=== PATIENT | female | born 1955 | race Caucasian/White ===

== ENCOUNTER → 2018-12-15 | Outpatient (CLI) | payer BC ==
--- NOTE | 2018-12-19 20:20 | HM ---
HOLTER MONITOR REPORT PROCEDURE PERFORMED: 24 hour Holter monitor DATE OF SERVICE: December 15, 2018. INDICATION: Palpitations. REFERRING: Dr. Milner. CLINICAL INFORMATION: The patient was monitored for 24 hours. The baseline rhythm appeared to be a sinus mechanism with a minimum heart rate of 69 beats per minute. Max heart rate 142 beats per minute, average heart rate of 95 beats per minutes. Ventricular ectopic events were presented in less than 1% of the total beats common. Supraventricular ectopic events were presented in less than 1% of the total beats count as well. The patient did have a few short episodes of SVT noted. No evidence of any sinus pause or sinus arrest seen. CONCLUSION: 1. Sinus rhythm as a baseline mechanism. 2. Rare ventricular ectopic events. 3. Rare supraventricular ectopic events. 4. The patient did have multiple short episode of SVT consistent with atrial tachycardia. 5. No evidence of sinus pauses or sinus arrest. 6. The patient reported no symptoms. MMODL / IJN: [id number] /
== END ==
LOC: RADECHMAIN 11:52
PROVIDERS: ATTEND Family Medicine
DX: R00.0 Tachycardia, unspecified (principal)
CPT/HCPCS: 93225; 93226

== ENCOUNTER → 2019-06-04 | Outpatient (CLI) | payer BC ==
--- NOTE | 2019-06-09 09:07 | MM ---
Reason for exam: screening (asymptomatic). Last mammogram was performed 4 years and 6 months ago. Physical Findings: A clinical breast exam by your physician is recommended on an annual basis and results should be correlated with mammographic findings. MG 3D Screening Mammo W/Cad Bilateral CC and MLO view(s) were taken. Prior study comparison: December 01, 2014, bilateral MG screening mammo w CAD. October 07, 2007, workup right diagnostic mammogram. The breast tissue is heterogeneously dense. This may lower the sensitivity of mammography. Focal asymmetry right medial CC. This finding is changed when compared with previous exams. ASSESSMENT: Incomplete: need additional imaging evaluation, BI-RAD 0 RECOMMENDATION: Special view mammogram of the right breast. If lesion persists on supplemental views, image directed ultrasound is recommended. [facility] will attempt to contact patient to return for supplemental views and ultrasound if indicated.
== END | disposition home or self-care (01) ==
LOC: RADMAMWWP 15:12
PROVIDERS: ATTEND Family Medicine
DX: Z12.31 Encounter for screening mammogram for malignant neoplasm of breast (principal)
CPT/HCPCS: 77063; 77067

== ENCOUNTER → 2019-06-23 | Outpatient (CLI) | payer BC ==
--- NOTE | 2019-06-24 08:22 | MM ---
Reason for exam: additional evaluation requested from abnormal screening. Last mammogram was performed 1 month ago. History: Patient is postmenopausal. Physical Findings: Nurse did not find any significant physical abnormalities on exam. MG 3D Work Up W/Cad RT Spot compression CC and LM view(s) were taken of the right breast. Prior study comparison: June 04, 2019, bilateral MG 3d screening mammo w/cad. December 01, 2014, bilateral MG screening mammo w CAD. The breast tissue is heterogeneously dense. This may lower the sensitivity of mammography. The previously seen abnormality resolves on additional views and appears as fibroglandular tissue compatible with summation on the right breast. Retrospectively this medial asymmetry is stable back to 2014. These results were verbally communicated with the patient and result sheet given to the patient on 06/23/19. ASSESSMENT: Benign, BI-RAD 2 RECOMMENDATION: Return to routine screening mammogram schedule for both breasts.
== END | disposition home or self-care (01) ==
LOC: RADMAMWWP 15:12
PROVIDERS: ATTEND Family Medicine
DX: R92.8 Other abnormal and inconclusive findings on diagnostic imaging of breast (principal)
CPT/HCPCS: 77061; 77065

== ENCOUNTER → 2020-10-05 | Outpatient (CLI) | payer BC ==
--- NOTE | 2020-10-06 11:01 | MM ---
Reason for exam: screening (asymptomatic). Last mammogram was performed 1 year and 3 months ago. History: Patient is postmenopausal. Physical Findings: A clinical breast exam by your physician is recommended on an annual basis and results should be correlated with mammographic findings. MG 3D Screening Mammo W/Cad Bilateral CC and MLO view(s) were taken. Prior study comparison: June 23, 2019, right breast MG 3d work up w/cad RT. June 04, 2019, bilateral MG 3d screening mammo w/cad. There are scattered fibroglandular densities. No significant changes when compared with prior studies. ASSESSMENT: Benign, BI-RAD 2 RECOMMENDATION: Routine screening mammogram of both breasts in 1 year.
== END | disposition home or self-care (01) ==
LOC: RADMAMWWP 15:09
PROVIDERS: ATTEND Family Medicine
DX: Z12.31 Encounter for screening mammogram for malignant neoplasm of breast (principal)
CPT/HCPCS: 77063; 77067

== ENCOUNTER 2021-04-18 08:09 | Day surgery (SDC) | payer BC ==
[2021-04-13 17:23] VITALS: BMI 39.0
[~2021-04-18 08:09] MED LIST: LACTATED RINGERS 1,000 ML IV SCH
[2021-04-18] MEDS ORDERED: LIDOCAINE 1% (10MG/ML) FOR IV START INTRADERMA ONE (08:40)
[2021-04-18 08:46] VITALS: RESP 16; TEMP 98.3
[2021-04-18] MEDS ORDERED: PROPOFOL 10 MG/ML 20 ML VIAL IV ONE (09:06)
--- NOTE | 2021-04-18 09:10 | P.GSHP ---
History of Present Illness H&P Date: 04/18/21 Chief Complaint: Colon cancer screening 65-year-old female here today for colonoscopy. Last colonoscopy 7 years ago. At study was normal. Has a family history of colon cancer in her uncle. No bowel complaints. Past Medical History Past Medical History: Asthma, Hypertension Additional Past Medical History / Comment(s): Asthma when smoked in past. History of Any Multi-Drug Resistant Organisms: None Reported Additional Past Surgical History / Comment(s): D&C. Colonoscopy Past Anesthesia/Blood Transfusion Reactions: No Reported Reaction Smoking Status: Former smoker - Past Family History Sister(s) Family Medical History: Cancer Additional Family Medical History / Comment(s): liver cancer; another sister had minor skin cancer Brother(s) Family Medical History: CVA/TIA Medications and Allergies Home Medications Medication Instructions Recorded Confirmed Type Valsartan/Hydrochlorothiazide 1 each PO DAILY 02/26/16 04/13/21 History [Valsartan-Hctz 320-25 mg Tab] amLODIPine BESYLATE [Norvasc] 5 mg PO DAILY 02/26/16 04/13/21 History Metoprolol Succinate (ER) [Toprol 25 mg PO DAILY 04/13/21 04/13/21 History Xl] Multivitamins, Thera [Multivitamin 1 tab PO DAILY 04/13/21 04/13/21 History (formulary)] Allergies Allergy/AdvReac Type Severity Reaction Status Date / Time lisinopril [From Zestril] AdvReac Cough Verified 04/18/21 08:30 Surgical - Exam Vital Signs Temp Pulse Resp BP Pulse Ox 98.3 F 95 16 135/77 96 04/18/21 08:40 04/18/21 08:40 04/18/21 08:40 04/18/21 08:40 04/18/21 08:40 Physical exam: General: Well-developed, well-nourished HEENT: Normocephalic, sclerae nonicteric Abdomen: Nontender, nondistended Extremities: No edema Neuro: Alert and oriented Assessment and Plan (1) Colon cancer screening Narrative/Plan: Will proceed with colonoscopy Current Visit: Yes Status: Acute Code(s): Z12.11 - ENCOUNTER FOR SCREENING FOR MALIGNANT NEOPLASM OF COLON SNOMED Code(s): 793440605
--- NOTE | 2021-04-18 09:33 | P.PCN ---
Date of Procedure: 04/18/21 Procedure(s) Performed: PREOPERATIVE DIAGNOSIS: Colon cancer screening POSTOPERATIVE DIAGNOSIS: Normal exam PROCEDURE: Colonoscopy ANESTHESIA: MAC SURGEON: Mike Armas M.D. SPECIMENS: None ENDOSCOPIC PROCEDURE: The patient was placed on the endoscopy table in the left decubitus position. The Olympus colonoscope was inserted into the anus and passed under direct visualization to the base of the cecum. The appendiceal orifice was visualized. From that point the scope was slowly withdrawn inspecti ng all surfaces carefully. There were no neoplastic inflammatory or polypoid lesions throughout the cecum, ascending, transverse, descending, sigmoid and rectum. There was no visible diverticulosis noted. Digital rectal examination was normal. The patient was taken to the recovery room in stable condition per anesthesia guidelines. RECOMMENDATIONS: Resume diet. Follow-up colonoscopy 10 years
[2021-04-18 09:52] VITALS: BP 137/85; PULSE 74
== END 2021-04-18 10:05 | disposition home or self-care (01) ==
LOC: ORWHC2ENDO 08:09
PROVIDERS: ATTEND Surgery
DX: Z12.11 Encounter for screening for malignant neoplasm of colon (principal); D17.79 Benign lipomatous neoplasm of other sites; I10 Essential (primary) hypertension; J45.909 Unspecified asthma, uncomplicated; Z87.891 Personal history of nicotine dependence; J40 Bronchitis, not specified as acute or chronic; Z97.2 Presence of dental prosthetic device (complete) (partial); Z80.0 Family history of malignant neoplasm of digestive organs; Z80.8 Family history of malignant neoplasm of other organs or systems; Z82.3 Family history of stroke; Z79.899 Other long term (current) drug therapy; Z88.8 Allergy status to other drugs, medicaments and biological substances
CPT/HCPCS: G0105; J2704; 45378

== ENCOUNTER → 2021-10-20 | Outpatient (CLI) | payer BC ==
--- NOTE | 2021-10-23 10:01 | MM ---
Reason for exam: screening (asymptomatic). Last mammogram was performed 1 year ago. History: Patient is postmenopausal. Physical Findings: A clinical breast exam by your physician is recommended on an annual basis and results should be correlated with mammographic findings. MG 3D Screening Mammo W/Cad Bilateral CC and MLO view(s) were taken. Prior study comparison: October 05, 2020, bilateral MG 3d screening mammo w/cad. June 23, 2019, right breast MG 3d work up w/cad RT. There are benign appearing round calcifications bilaterally. There is no discrete abnormality. ASSESSMENT: Benign, BI-RAD 2 RECOMMENDATION: Routine screening mammogram of both breasts in 1 year.
== END | disposition home or self-care (01) ==
LOC: RADMAMWWP 11:28
PROVIDERS: ATTEND Family Medicine
DX: Z12.31 Encounter for screening mammogram for malignant neoplasm of breast (principal); Z78.0 Asymptomatic menopausal state
CPT/HCPCS: 77063; 77067

== ENCOUNTER 2022-01-16 19:02 | Emergency (ER) | payer BC ==
--- NOTE | 2022-01-16 20:13 | XR ---
EXAMINATION TYPE: XR chest 2V DATE OF EXAM: 01/16/2022 COMPARISON: 02/26/2016 HISTORY: 2 views TECHNIQUE: FINDINGS: Heart and mediastinum are normal. Lungs are clear. Diaphragm is normal. Bony tho rax appears normal. Impression Normal chest.
[2022-01-16] MEDS ORDERED: IPRATROPIUM-ALBUTEROL 3 ML NEB INHALATION STA (22:29)
[2022-01-16] MEDS ORDERED: SODIUM CHLORIDE 0.9% 1,000 ML IV STA (22:29)
--- NOTE | 2022-01-16 22:32 | ED ---
Chest Pain HPI - General Chief Complaint: Chest Pain Stated Complaint: KARTHIK Source: patient, RN notes reviewed, old records reviewed Mode of arrival: ambulatory Limitations: no limitations - History of Present Illness Initial Comments: This is a 66-year-old female DF for evaluation. Patient has history of high blood pressure and asthma. Patient states she has have pain in her lungs when she takes a deep breath. It hurts to breathe which she has no shortness of breath. No recent travel history or sick contacts, no chest pain. No fever, she has have occasional cough and mild congestion. No prior admission for breathing issues. No body aches or pains. No nausea vomiting or diarrhea MD Complaint: chest pain, other (Further chest pain) -: days(s) Onset: during rest, during exertion Pain Location: substernal Pain Radiation: none Severity: mild Severity scale (1-10): 2 Quality: tightness Consistency: intermittent Improves With: nothing Worsens With: exertion, inspiration Context: recent illness Anginal Symptoms: dyspnea Other Symptoms: palpitations Treatments Prior to Arrival: none - Related Data Home Medications Medication Instructions Recorded Confirmed Metoprolol Succinate [Toprol XL] 50 mg PO DAILY 01/16/22 01/16/22 Spironolactone 50 mg PO DAILY 01/16/22 01/16/22 Valsartan 320 mg PO DAILY 01/16/22 01/16/22 Previous Rx's Medication Instructions Recorded Albuterol Sulfate [Proair Hfa] 1 - 2 puff INHALATION Q4H PRN #8.5 01/17/22 gm Azithromycin [Zithromax Z-pack (6 0 mg PO DIRECTED #1 packet 01/17/22 tabs)] predniSONE 50 mg PO DAILY #5 tab 01/17/22 Allergies Allergy/AdvReac Type Severity Reaction Status Date / Time lisinopril [From Zestril] AdvReac Cough Verified 01/16/22 23:17 Review of Systems ROS Statement: Those systems with pertinent positive or pertinent negative responses have been documented in the HPI. ROS Other: All systems not noted in ROS Statement are negative. EKG Findings - EKG Comments: EKG Findings:: EKG is sinus rhythm 95 ND 173 QRS 85 QTC 397 Past Medical History Past Medical History: Asthma, Hypertension Additional Past Medical History / Comment(s): Asthma when smoked in past. History of Any Multi-Drug Resistant Organisms: None Reported Additional Past Surgical History / Comment(s): D&C. Colonoscopy Past Anesthesia/Blood Transfusion Reactions: No Reported Reaction Past Psychological History: No Psychological Hx Reported Smoking Status: Former smoker Past Alcohol Use History: Rare Past Drug Use History: None Reported - Past Family History Sister(s) Family Medical History: Cancer Additional Family Medical History / Comment(s): liver cancer; another sister had minor skin cancer Brother(s) Family Medical History: CVA/TIA General Exam Limitations: no limitations General appearance: alert, in no apparent distress Head exam: Present: atraumatic, normocephalic, normal inspection Eye exam: Present: normal appearance, PERRL, EOMI. Absent: scleral icterus, conjunctival injection, periorbital swelling ENT exam: Present: normal exam, mucous membranes moist Neck exam: Present: normal inspection. Absent: tenderness, meningismus, lymphadenopathy Respiratory exam: Present: normal lung sounds bilaterally. Absent: respiratory distress, wheezes, rales, rhonchi, stridor Cardiovascular Exam: Present: regular rate, normal rhythm, normal heart sounds. Absent: systolic murmur, diastolic murmur, rubs, gallop, clicks GI/Abdominal exam: Present: soft, normal bowel sounds. Absent: distended, tenderness, guarding, rebound, rigid Extremities exam: Present: normal inspection, full ROM, normal capillary refill. Absent: tenderness, pedal edema, joint swelling, calf tenderness Back exam: Present: normal inspection Neurological exam: Present: alert, oriented X3, CN II-XII intact Psychiatric exam: Present: normal affect, normal mood Skin exam: Present: warm, dry, intact, normal color. Absent: rash Course Vital Signs 01/16/22 01/16/22 01/16/22 19:25 23:45 23:56 Temperature 98.5 F Pulse Rate 97 97 88 Respiratory 18 Rate Blood Pressure 185/111 O2 Sat by Pulse 94 L Oximetry 01/17/22 01:00 Temperature 99.1 F Pulse Rate 99 Respiratory 19 Rate Blood Pressure 152/88 O2 Sat by Pulse 96 Oximetry - Reevaluation(s) Reevaluation #1: 01/17/2022 Medical record is reviewed Patient symptoms are improved here in the ER Patient informed results questions are answered Reevaluation #2: Studies Chest x-rays negative for acute disease Chest Pain MDM - MDM 66 female with atypical chest pain positive bronchitis on exam. Patient be treated appropriately and can be discharged home Disposition Clinical Impression: Chest pain, Atypical chest pain, Acute bronchitis Disposition: HOME SELF-CARE Condition: Good Instructions (If sedation given, give patient instructions): Chest Pain (ED), Acute Bronchitis (ED) Prescriptions: predniSONE 50 mg PO DAILY #5 tab Albuterol Sulfate [Proair Hfa] 1 - 2 puff INHALATION Q4H PRN #8.5 gm PRN Reason: Shortness Of Breath Azithromycin [Zithromax Z-pack (6 tabs)] 0 mg PO DIRECTED #1 packet Is patient prescribed a controlled substance at d/c from ED?: No Referrals: Gosia Armas MD [Primary Care Provider] - 1-2 days
[2022-01-17 00:21] LABS: Basophils # (A) 0.1 k/uL (0-0.2); Basophils % (A) 1 %; Eosinophils # (A) 0.3 k/uL (0-0.7); Eosinophils % (A) 3 %; HCT 41.9 % (34.0-46.0); HGB 13.8 gm/dL (11.4-16.0); Lymphocytes # (A) 1.6 k/uL (1.0-4.8); Lymphocytes % (A) 13 %; Mean Platelet Volume 9.3; Monocytes # (A) 0.8 k/uL (0-1.0); Monocytes % (A) 7 %; Neutrophils # (A) 9.4 k/uL (1.3-7.7); Neutrophils % (A) 76 %; Platelet Count 243 k/uL (150-450); RBC 4.77 m/uL (3.80-5.40); RDW 13.3 % (11.5-15.5); WBC 12.4 k/uL (3.8-10.6)
[2022-01-17 00:32] LABS: ALT 25 U/L (4-34); AST 22 U/L (14-36); African American GFR (CKD) >90 (>60 ml/min/1.73 sqM); Albumin 4.3 g/dL (3.5-5.0); Alkaline Phosphatase 81 U/L (38-126); Anion Gap 8 mmol/L; Blood Urea Nitrogen 14 mg/dL (7-17); Calcium 9.3 mg/dL (8.4-10.2); Carbon Dioxide 25 mmol/L (22-30); Chloride 106 mmol/L (98-107); Glucose 113 mg/dL (74-99); Non-African American GFR(CKD) 88 (>60 ml/min/1.73 sqM); Sodium 139 mmol/L (137-145); Total Bilirubin 0.8 mg/dL (0.2-1.3); Total Protein 7.3 g/dL (6.3-8.2)
[2022-01-17 00:36] LABS: Partial Thromboplastin Time 24.5 sec (22.0-30.0); Prothrombin Time 10.8 sec (9.0-12.0)
[2022-01-17 01:01] VITALS: BP 152/88; PULSE 99; RESP 19; TEMP 99.1
[2022-01-17] MEDS ORDERED: methylPREDNISolone SOD SUCCI 125 MG/2 ML VIAL IV STA (01:20)
== END 2022-01-17 01:58 | disposition home or self-care (01) ==
LOC: EC 19:02
DX: J20.9 Acute bronchitis, unspecified (principal); I10 Essential (primary) hypertension; J45.909 Unspecified asthma, uncomplicated; Z87.891 Personal history of nicotine dependence; Z79.899 Other long term (current) drug therapy
CPT/HCPCS: 99285; 96374; 36415; 94640; 93005; 85379; 83880; 80053; 83735; 84484; 85025; 85610; 85730; 71046; J2930

== ENCOUNTER → 2022-10-22 | Outpatient (CLI) | payer BC ==
--- NOTE | 2022-10-23 08:42 | MM ---
Reason for Exam: Screening (asymptomatic). Last mammogram was performed 1 year(s) and 1 month(s) ago. Patient History: Menarche at age 15. First Full-Term at age 21. Postmenopausal. Risk Values: Sarah 5 year model risk: 1.2%. NCI Lifetime model risk: 4.7%. Prior Study Comparison: 06/23/2019 Right Diagnostic Mammogram, [facility]. 10/05/2020 Bilateral Screening Mammogram, [facility]. 10/20/2021 Bilateral Screening Mammogram, [facility]. Tissue Density: The breast tissue is heterogeneously dense. This may lower the sensitivity of mammography. Findings: Analyzed By CAD. Grouped calcifications within the left breast middle depth 5.6 cm from the nipple on MLO view in the outer quadrant on CC view. No suspicious masses, calcifications or distortions within the right breast. Overall Assessment: Incomplete: need additional imaging evaluation, BI-RAD 0 Management: Diagnostic Mammogram of the left breast. A clinical breast exam by your physician is recommended on an annual basis and results should be correlated with mammographic findings. [facility] will attempt to contact patient to return for supplemental views and ultrasound if indicated. Electronically signed and approved by: Ventura Reyes DO
== END | disposition home or self-care (01) ==
LOC: RADMAMWWP 12:54
PROVIDERS: ATTEND Family Medicine
DX: Z12.31 Encounter for screening mammogram for malignant neoplasm of breast (principal); Z78.0 Asymptomatic menopausal state
CPT/HCPCS: 77063; 77067

== ENCOUNTER → 2022-10-26 | Outpatient (CLI) | payer BC ==
--- NOTE | 2022-10-26 15:27 | MM ---
Reason for Exam: Additional evaluation requested from prior study. Last screening mammogram was performed less than 1 month ago. Patient History: Menarche at age 15. First Full-Term at age 21. Postmenopausal. Risk Values: Sarah 5 year model risk: 1.2%. NCI Lifetime model risk: 4.7%. Prior Study Comparison: 10/05/2020 Bilateral Screening Mammogram, [facility]. 10/20/2021 Bilateral Screening Mammogram, [facility]. 10/22/2022 Bilateral MG 3D screening mammo w/cad, [facility]. Tissue Density: Left: The breast tissue is heterogeneously dense. This may lower the sensitivity of mammography. Findings: Analyzed By CAD. Grouped coarse heterogenous calcifications in the left breast at middle depth in the upper outer quadrant. Overall Assessment: Suspicious, BI-RAD 4 Management: Stereotactic Core Biopsy of the left breast. A clinical breast exam by your physician is recommended on an annual basis and results should be correlated with mammographic findings. This exam should not preclude additional follow-up of suspicious palpable abnormalities. Results were given to the patient verbally at the time of exam. Electronically signed and approved by: Chris Jorge D.O.
== END | disposition home or self-care (01) ==
LOC: RADMAMWWP 14:53
PROVIDERS: ATTEND Family Medicine
DX: R92.8 Other abnormal and inconclusive findings on diagnostic imaging of breast (principal); Z78.0 Asymptomatic menopausal state
CPT/HCPCS: 77061; 77065

== ENCOUNTER → 2022-11-05 | Day surgery (SDC) | payer BC ==
[2022-11-05 07:32] VITALS: RESP 16
[2022-11-05 08:43] VITALS: BP 128/90; PULSE 81; TEMP 98.3
--- NOTE | 2022-11-09 11:03 | MM ---
Risk Values: Sarah 5 year model risk: 1.2%. NCI Lifetime model risk: 4.7%. Prior Study Comparison: 10/20/2021 Bilateral Screening Mammogram, [facility]. 10/22/2022 Bilateral MG 3D screening mammo w/cad, [facility]. 10/26/2022 Left MG 3D work up w/cad , [facility]. Pathology Description: Location: middle. Approach: CC FA Needle Type: Eviva Cores: 7 Skin Nicks: 1 Gauge: 9 The procedure of stereotactic guided core biopsy was explained to the patient. Benefits, alternatives, and risks were discussed. An informed consent was then obtained. The shortness pathway for biopsy was chosen. [facility] superior approach. I performed the localization and procedure. A vacuum assisted biopsy gun was used to obtain multiple core samples. The patient tolerated the procedure well without any immediate complication. The patient was kept in the radiology department for short stay after the procedure and then discharged home in stable condition. Targeted calcifications are identified in specimen mammogram. Post biopsy mammogram shows the clip to appear in satisfactory position relative to the targeted area of concern on the preprocedure images. Impression: SUCCESSFUL, UNCOMPLICATED STEREOTACTIC GUIDED CORE BIOPSY OF AREA OF CONCERN IN THE LEFT BREAST. Pathology Results: Result: Benign, Fibrocystic change. LEFT BREAST, STEREOTACTIC NEEDLE CORE BIOPSY: Fibrocystic changes including cysts with columnar cell change and calcifications. Overall Assessment: Benign Management: Diagnostic Mammogram of the left breast in 6 months. Electronically signed and approved by: Chris Jorge D.O.
== END ==
LOC: RADMAMWWP 07:16
PROVIDERS: ATTEND Surgery
DX: N60.12 Diffuse cystic mastopathy of left breast (principal); R92.1 Mammographic calcification found on diagnostic imaging of breast
CPT/HCPCS: 88305; 19081; A4648; J2001

== ENCOUNTER → 2023-04-26 | Outpatient (CLI) | payer MEDICARE ==
--- NOTE | 2023-04-26 14:44 | MM ---
Reason for Exam: Follow-up at short interval from prior study. Last screening mammogram was performed 6 month(s) ago. Patient History: Menarche at age 15. First Full-Term at age 21. Postmenopausal. 11/05/2022, Benign MG stereo VAD BX LT on the left side. Risk Values: Sarah 5 year model risk: 1.4%. NCI Lifetime model risk: 5.4%. Prior Study Comparison: 10/20/2021 Bilateral Screening Mammogram, [facility]. 10/22/2022 Bilateral MG 3D screening mammo w/cad, [facility]. 10/26/2022 Left MG 3D work up w/cad LT, [facility]. Tissue Density: Left: There are scattered fibroglandular densities. Findings: Analyzed By CAD. Postbiopsy changes left breast. Biopsy clip in appropriate position. No new suspicious masses, calcifications or distortions. Overall Assessment: Benign, BI-RAD 2 Management: Screening Mammogram of both breasts in 1 year. Results were given to the patient verbally at the time of exam. Patient should continue monthly self-breast exams. A clinical breast exam by your physician is recommended on an annual basis. This exam should not preclude additional follow-up of suspicious palpable abnormalities. Note on Sarah scores and lifetime risk: 1. A Sarah score greater than 3% is considered moderate risk. If this is the case, consider specialist referral to assess eligibility for a risk reducing agent. 2. If overall lifetime risk for the development of breast cancer is 20% or higher, the patient may qualify for future screening with alternating mammogram and breast MRI. Electronically signed and approved by: Ventura Reyes DO
== END | disposition home or self-care (01) ==
LOC: RADMAMWWP 14:15
PROVIDERS: ATTEND Surgery
DX: R92.8 Other abnormal and inconclusive findings on diagnostic imaging of breast (principal); Z78.0 Asymptomatic menopausal state
CPT/HCPCS: 77065; G0279; 77061

== ENCOUNTER → 2023-10-30 | Outpatient (CLI) | payer MEDICARE ==
--- NOTE | 2023-11-01 15:48 | MM ---
Reason for Exam: Screening (asymptomatic). Last screening mammogram was performed 12 month(s) ago. Patient History: Menarche at age 15. First Full-Term at age 21. Postmenopausal. 11/05/2022, Benign MG stereo VAD BX LT on the left side. Risk Values: Sarah 5 year model risk: 1.4%. NCI Lifetime model risk: 5.4%. Prior Study Comparison: 09/09/2007 Bilateral Screening Mammogram, [facility]. 10/07/2007 Right Diagnostic Mammogram, [facility]. 12/01/2014 Bilateral Screening Mammogram, [facility]. 06/04/2019 Bilateral Screening Mammogram, [facility]. 06/23/2019 Right Diagnostic Mammogram, [facility]. 10/05/2020 Bilateral Screening Mammogram, [facility]. 10/20/2021 Bilateral Screening Mammogram, [facility]. 10/22/2022 Bilateral MG 3D screening mammo w/cad, [facility]. 10/26/2022 Left MG 3D work up w/cad LT, [facility]. 04/26/2023 Left MG 3D diag mammo w/cad LT, [facility]. Tissue Density: There are scattered fibroglandular densities. Findings: Analyzed By CAD. Heart appears symmetrical and stable. No significant interval change is evident. Benign round calcifications are present bilaterally. A core marker is within the left breast. Chronic nodularity is within the left breast No suspicious groups of microcalcifications, spiculated or lobular masses, architectural distortion or other secondary signs of malignancy are mammographically apparent. Overall Assessment: Benign, BI-RAD 2 Management: Screening Mammogram of both breasts in 1 year. A negative mammogram report should not preclude additional follow up of suspicious palpable abnormalities. Patient should continue monthly self breast exam. A clinical breast exam by your physician is recommended on an annual basis and results should be correlated with mammographic findings. Electronically signed and approved by: William Hoskins D.O. Radiologis
== END | disposition home or self-care (01) ==
LOC: RADMAMWWP 09:29
PROVIDERS: ATTEND Family Medicine
DX: Z12.31 Encounter for screening mammogram for malignant neoplasm of breast (principal); Z78.0 Asymptomatic menopausal state
CPT/HCPCS: 77063; 77067

== ENCOUNTER → 2024-03-10 | Outpatient (CLI) | payer MEDICARE ==
--- NOTE | 2024-03-10 11:09 | US ---
EXAMINATION TYPE: US transvaginal DATE OF EXAM: 03/10/2024 COMPARISON: NONE CLINICAL INDICATION: Female, 68 years old with history of N93.9 ABNORMAL UTERINE AND VAGINAL BLEEDING , UNSPE; spotting for 6 days, bleeding has now stopped, no pain TECHNIQUE: TV. Transvaginal sonographic images Date of LMP: 16 years ago EXAM MEASUREMENTS: Uterus: 7.1 x 2.7 x 3.4cm cm Endometrial Stripe: 0.9 cm Right Ovary: not seen Left Ovary: not seen 1. Uterus: Anteverted wnl 2. Endometrium: thickened 3. Right Ovary: not seen due to bowel gas and or atrophy 4. Left Ovary: not seen due to bowel gas and or atrophy 5. Bilateral Adnexa: wnl 6. Posterior cul-de-sac: wnl IMPRESSION: 1. Thickened endometrium for patient's age. Further evaluation with direct visualization and tissue simply recommended. 2. Nonvisualization of the ovaries due to bowel gas.
== END | disposition home or self-care (01) ==
LOC: RADUSWWP 09:55
PROVIDERS: ATTEND Family Medicine
DX: N93.9 Abnormal uterine and vaginal bleeding, unspecified (principal); R93.89 Abnormal findings on diagnostic imaging of other specified body structures
CPT/HCPCS: 76830

== ENCOUNTER → 2024-05-11 | Outpatient (CLI) | payer MEDICARE ==
[2024-05-11 16:26] LABS: Basophils # (A) 0.05 X 10*3/uL (0.00-0.10); Basophils % (A) 0.3 %; Eosinophils # (A) 0 X 10*3/uL (0.04-0.35); Eosinophils % (A) 0 %; HCT 40.2 % (37.2-46.3); HGB 13.1 g/dL (12.0-15.0); MCH 29.2 pg (27.0-32.0); MCHC 32.6 g/dL (32.0-37.0); MCV 89.7 FL (80.0-97.0); Mean Platelet Volume 10.5 FL (9.5-12.2); Monocytes # (A) 1.25 X 10*3/uL (0.20-1.00); Monocytes % (A) 8.1 %; NRBC Per 100 WBC 0 X 10*3/uL (0.00-0.01); Neutrophils # (A) 11.44 X 10*3/uL (1.80-7.70); Neutrophils % (A) 74.4 %; Platelet Count 264 X 10*3/uL (140-440); RBC 4.48 X 10*6/uL (4.10-5.20); RDW 13.6 % (11.5-14.5); WBC 15.38 X 10*3/uL (4.50-10.00)
== END | disposition home or self-care (01) ==
LOC: LABPAT 08:51
PROVIDERS: ATTEND Obstetrics & Gynecology
DX: Z01.818 Encounter for other preprocedural examination (principal); I10 Essential (primary) hypertension; N95.0 Postmenopausal bleeding
CPT/HCPCS: 85025; 93005

== ENCOUNTER → 2024-05-18 | Outpatient (CLI) | payer MEDICARE ==
[2024-05-18 09:37] LABS: Basophils # (A) 0.1 k/uL (0-0.2); Basophils % (A) 1 %; Eosinophils # (A) 0.4 k/uL (0-0.7); Eosinophils % (A) 4 %; HGB 13.3 gm/dL (11.4-16.0); Lymphocytes # (A) 2.9 k/uL (1.0-4.8); Lymphocytes % (A) 24 %; MCH 29.9 pg (25.0-35.0); MCHC 33.2 g/dL (31.0-37.0); Mean Platelet Volume 6.7; Monocytes # (A) 0.7 k/uL (0-1.0); Monocytes % (A) 6 %; Neutrophils # (A) 8.1 k/uL (1.3-7.7); Neutrophils % (A) 65 %; Platelet Count 343 k/uL (150-450); RBC 4.44 m/uL (3.80-5.40); RDW 13.2 % (11.5-15.5); WBC 12.5 k/uL (3.8-10.6)
== END | disposition home or self-care (01) ==
LOC: LABWHC1 09:12
PROVIDERS: ATTEND Obstetrics & Gynecology
DX: Z01.812 Encounter for preprocedural laboratory examination (principal); D72.829 Elevated white blood cell count, unspecified
CPT/HCPCS: 36415; 85025

== ENCOUNTER 2024-05-19 06:31 | Day surgery (SDC) | payer MEDICARE ==
[2024-05-15 11:08] VITALS: BMI 39.0
--- NOTE | 2024-05-18 12:09 | HP ---
HISTORY AND PHYSICAL HISTORY OF PRESENT ILLNESS: The patient is a 68-year-old woman who was initially referred by Dr. Gosia Armas for postmenopausal bleeding. She reports that she had 1 week of spotty bleeding last month in February which resolved prior to being seen by primary care. She was sent for a transvaginal ultrasound, which showed an endometrial stripe thickness of 9 mm and was referred for further evaluation. She has no ongoing symptoms and has never used any form of hormone replacement therapy. In the office, she was found with significant vaginal and cervical atrophy as well as cervical stenosis, and a biopsy was unable to be performed. PAST MEDICAL HISTORY: Significant for asthma, hypercholesterolemia, and hypertension. SURGICAL HISTORY: She had history of a breast biopsy in 2022, wisdom tooth extraction in the distant past. OBSTETRICAL HISTORY: 2, para 2-0-0-2 with 2 term vaginal deliveries without complications. GYNECOLOGIC HISTORY: Unremarkable and confined to as noted in history of present illness. SOCIAL HISTORY: The patient is and is retired. She is a nonsmoker though she does have a history of smoking in the past. She denies any other significant social concerns. CURRENT MEDICATIONS: 1. Albuterol metered-dose inhaler as needed. 2. Aldactone 50 mg daily. 3. Toprol-XL 50 mg daily. 4. Trelegy inhaler daily. 5. Valsartan 320 mg daily. 6. Xyzal 5 mg daily. 7. Aleve as needed. ALLERGIES: No known drug allergies. REVIEW OF SYSTEMS: Confined to history of present illness. PHYSICAL EXAMINATION: VITAL SIGNS: Stable. The patient is afebrile. GENERAL: This is a well-developed, well-nourished white female, in no acute distress. HEART: Has a regular rhythm and rate without murmur. LUNGS: Clear to auscultation bilaterally in all hunt. ABDOMEN: Nondistended, has normoactive bowel sounds, soft, nontender, without any palpable masses, hepatosplenomegaly, or hernias. EXTREMITIES: Without any cyanosis, clubbing, or edema and are nontender to palpation bilaterally. PELVIS: Examination demonstrates normal external genitalia and BUS with normal vaginal mucosa, though there is significant atrophy present. The cervix is normal in appearance though it is stenotic and we are unable to pass an endometrial biopsy tool. The uterus is atrophic, mid plane, mobile, nontender. The adnexa are nonpalpable without any apparent masses bilaterally. ASSESSMENT AND PLAN: Postmenopausal bleeding with cervical stenosis and thickened endometrium: As we are unable to perform an office biopsy for all of the reasons as outlined above, we will proceed with diagnostic hysteroscopy with D and C. The risks and complications have been discussed at length including the risk for bleeding, bleeding requiring transfusion, infection, injury to local structures to specifically include uterine perforation and potential for Asherman syndrome. She has understood and agreed to proceed. We are scheduled for the morning of May 19. MMODL / IJN: [id number] /
[~2024-05-19 06:31] MED LIST changes: -LACTATED RINGERS 1,000 ML IV SCH; +Pre Op ABX Message 1 EACH MISC MISCELLANE ONE
[2024-05-19] MEDS ORDERED: MIDAZOLAM 2 MG/2 ML VIAL IV PRN (07:00)
[2024-05-19] MEDS ORDERED: HYDROmorphone 0.5 MG/0.5 ML SYRINGE IVP PRN (07:00)
[2024-05-19 07:02] VITALS: RESP 16
[2024-05-19] MEDS: IV FLUID CONTINUATION 1,000 ML IV ONE ×2 (07:11→08:49)
[2024-05-19] MEDS: LACTATED RINGERS 1,000 ML IV SCH (07:12)
[2024-05-19] MEDS: DEXAMETHASONE SOD PHOSPHATE 4 MG/ML 1 ML VIAL IV ONE (07:12)
[2024-05-19] MEDS: ONDANSETRON 4 MG/2 ML VIAL IVP ONE (07:12)
[2024-05-19] MEDS ORDERED: PROPOFOL 10 MG/ML 20 ML VIAL IV ONE (07:36)
[2024-05-19] MEDS ORDERED: fentaNYL (PF) 50 MCG/ML 2 ML AMP ONE (07:36)
[2024-05-19] MEDS ORDERED: LIDOCAINE 1% INJ 10MG/ML (20 ML MDV) ONE (07:36)
[2024-05-19] MEDS ORDERED: KETOROLAC 15 MG/ML 1 ML VIAL ONE (07:36)
[2024-05-19] MEDS ORDERED: MIDAZOLAM 2 MG/2 ML VIAL ONE (07:36)
[2024-05-19 08:22] VITALS: TEMP 97
[2024-05-19] MEDS ORDERED: diphenhydrAMINE 50 MG/ML 1 ML VIAL IVP PRN (08:23)
[2024-05-19] MEDS ORDERED: METOCLOPRAMIDE 5 MG/ML 2 ML VIAL IVP PRN (08:23)
[2024-05-19] MEDS ORDERED: SIMETHICONE 80 MG CHEWABLE PO PRN (08:23)
[2024-05-19] MEDS ORDERED: KETOROLAC 15 MG/ML 1 ML VIAL IVP PRN (08:23)
[2024-05-19] MEDS ORDERED: ONDANSETRON 4 MG/2 ML VIAL IVP PRN (08:23)
[2024-05-19] MEDS ORDERED: Acetaminophen-Codeine 300-30mg TAB PO PRN ×2 (08:23)
[2024-05-19] MEDS ORDERED: IBUPROFEN 600 MG TAB PO PRN (08:23)
[2024-05-19] MEDS ORDERED: LACTATED RINGERS 1,000 ML IV SCH (08:30)
--- NOTE | 2024-05-19 08:30 | P.OP ---
Date of Procedure: 05/19/24 Preoperative Diagnosis: #1. Postmenopausal bleeding #2. Thickened endometrial stripe #3. Cervical stenosis Postoperative Diagnosis: Same Procedure(s) Performed: #1. Diagnostic hysteroscopy #2. Endometrial curettage Anesthesia: other (General by LMA) Surgeon: Octavio Strong Estimated Blood Loss (ml): 5 IV fluids (ml): 300 Urine output (ml): 100 Pathology: other (Endometrial curettings) Condition: stable Disposition: PACU Operative Findings: Preoperative pelvic examination demonstrated moderate to significant vaginal atrophy with little with to the vaginal canal. The cervix itself was atrophic and relatively flush with the apex of the vagina as well. This was both felt and visualized. The uterus was ultimately sounded to 7 cm. Using the hysteroscope, there was a moderate amount of shaggy endometrial tissue primarily emanating from the posterior aspect of the fundal uterus and lower uterine segment. Some of it may have been polypoid in nature. The bilateral tubal ostia were seen. A small amount of tissue was removed with sharp curettage and the typical gritty texture was encountered throughout. The patient is a poor candidate for vaginal hysterectomy. Description of Procedure: The patient was prepped and draped in usual fashion after general anesthesia was administered by the anesthesiologist. A weighted speculum was placed in the anterior lip of the cervix grasped with a single-tooth tenaculum. The bladder was drained of approximately 100 ml of clear benito urine. The uterine sound was utilized to enter the cervix which had been pretreated with Cytotec last evening. The uterus sounded to 7 cm. Serial dilation was carried out to admit the diagnostic hysteroscope which was placed into the uterine cavity and the cavity distended with sorbitol. The findings were as noted above with a moderate amount of posterior wall shaggy endometrial tissue with some possible polypoid structures noted. The bilateral tubal ostia were seen. After adequate hysteroscopy been carried out, the scope was set aside and a small sharp curette introduced into the endometrial cavity which was then utilized to thoroughly and circumferentially curette the contents of the uterus onto a Telfa placed in the vagina. The typical gritty texture was encountered throughout and there was only a small amount of tissue that was produced despite what was seen at hysteroscopy. After several passes circumferentially, the curette was removed and all instrumentation removed. There was no ongoing bleeding from either the cervix or from the tenaculum site. Estimated blood loss was 5 mL or less. All sponge, instrument, and needle counts were correct. The patient tolerated the procedure well and proceeded to the recovery room in stable condition.
[2024-05-19 09:09] VITALS: BP 132/71; PULSE 70
[2024-05-20] MEDS ORDERED: ACETAMINOPHEN TAB 325 MG TAB PO PRN (08:24)
== END 2024-05-19 09:29 | disposition home or self-care (01) ==
LOC: OR 06:31
PROVIDERS: ATTEND Obstetrics & Gynecology
DX: N95.0 Postmenopausal bleeding (principal); N84.0 Polyp of corpus uteri; N88.2 Stricture and stenosis of cervix uteri; J45.909 Unspecified asthma, uncomplicated; I10 Essential (primary) hypertension; E78.00 Pure hypercholesterolemia, unspecified; Z88.8 Allergy status to other drugs, medicaments and biological substances; Z87.891 Personal history of nicotine dependence; Z79.899 Other long term (current) drug therapy
CPT/HCPCS: 88305; 58558; J2250; J1100; J2405; J2001; J3010; J1885; J2704

== ENCOUNTER → 2025-01-15 | Outpatient (CLI) | payer MEDICARE ==
--- NOTE | 2025-01-15 09:45 | MM ---
Reason for Exam: Screening (asymptomatic). Last mammogram was performed 1 year(s) and 2 month(s) ago. Patient History: Menarche at age 15. First Full-Term at age 21. Postmenopausal. 11/05/2022, Benign MG stereo VAD BX LT on the left side. Risk Values: Sarah 5 year model risk: 1.4%. NCI Lifetime model risk: 5.0%. Prior Study Comparison: 10/26/2022 Left MG 3D work up w/cad LT, [facility]. 04/26/2023 Left MG 3D diag mammo w/cad LT, [facility]. 10/30/2023 Bilateral MG 3D screening mammo w/cad, [facility]. Tissue Density: There are scattered areas of fibroglandular density. Findings: Analyzed By CAD. There is no suspicious group of microcalcifications or new suspicious mass in either breast. Benign appearing calcifications. Overall Assessment: Benign, BI-RAD 2 Management: Screening Mammogram of both breasts in 1 year. . Patient should continue monthly self-breast exams. A clinical breast exam by your physician is recommended on an annual basis. This exam should not preclude additional follow-up of suspicious palpable abnormalities. Note on Sarah scores and lifetime risk: 1. A Sarah score greater than 3% is considered moderate risk. If this is the case, consider specialist referral to assess eligibility for a risk reducing agent. 2. If overall lifetime risk for the development of breast cancer is 20% or higher, the patient may qualify for future screening with alternating mammogram and breast MRI. [facility], , 01/15/2025 9:43 AM. Electronically signed and approved by: Kyle Butt M.D. [facility]
== END | disposition home or self-care (01) ==
LOC: RADMAMWWP 09:08
PROVIDERS: ATTEND Family Medicine
DX: Z12.31 Encounter for screening mammogram for malignant neoplasm of breast (principal); R92.323 Mammographic fibroglandular density, bilateral breasts; Z78.0 Asymptomatic menopausal state
CPT/HCPCS: 77063; 77067